=== PATIENT | female | born 1955 ===

== ENCOUNTER 2021-07-23 06:01 | Inpatient (IN) ==
[~2021-07-23 06:01] MED LIST: Buffered Lidocaine 1% SYRIN 1 ml INTRADERM ONE; Dexamethasone IV 4 MG/ML VIAL 1 ml VIAL IV SLOW PU ONE; Famotidine IV 10 MG/ML 2 ml VIAL (20 mg) IV ONE; Lactated Ringers 1000 ml BAG 1,000 ML IV SCH
[2021-07-23] MEDS ORDERED: Heparin 5000 UNITS/ML 1 mL VIAL ONE (06:23)
[2021-07-23] MEDS ORDERED: ceFAZolin 2 GM PREMIX 2 GM/50 ML BAG ONE (06:24)
[2021-07-23] MEDS ORDERED: Dexamethasone IV 4 MG/ML VIAL 1 ml VIAL ONE (06:24)
[2021-07-23] MEDS ORDERED: Famotidine IV 10 MG/ML 2 ml VIAL (20 mg) ONE (06:24)
[2021-07-23] MEDS ORDERED: Buffered Lidocaine 1% SYRIN 1 ml INTRADERM ONE (07:02)
[2021-07-23] MEDS ORDERED: Lidocaine 2% PF 5 ML VIAL ONE (07:08)
[2021-07-23] MEDS ORDERED: ISOSULFAN BLUE 1% 5 ML VIAL 10 MG/ML SUBCUT ONE (07:10)
[2021-07-23] MEDS ORDERED: Bupivacaine 0.25% SDV PF 10 ML VIAL INJ ONE (07:10)
[2021-07-23] MEDS ORDERED: Prochlorperazine 5 mg/ml 2 ml VIAL (10 mg) IV PRN (07:26)
[2021-07-23] MEDS ORDERED: fentaNYL 100 mcg/2 ml 50 MCG/ML VIAL IV PRN (07:26)
[2021-07-23] MEDS ORDERED: Naloxone 0.4 mg VIAL 0.4 mg/ml 1 ml VIAL IV PRN (07:26)
[2021-07-23] MEDS ORDERED: Morphine 2 MG/ML SYRINGE IV PRN (10:32)
[2021-07-23] MEDS ORDERED: HYDROcodone/ACETAMIN 5/325 mg TAB PO PRN (10:41)
[2021-07-23] MEDS ORDERED: Scopolamine 1 mg/72hr PATCH TRANSDERM SCH (11:00)
[2021-07-23] MEDS: Heparin 5000 UNITS/ML 1 mL VIAL SUBCUT SCH ×2 (13:22→21:34)
[2021-07-23] MEDS: ceFAZolin 2 GM PREMIX 2 GM/50 ML BAG IVPB SCH ×2 (15:33→23:21)
[2021-07-24] MEDS: Heparin 5000 UNITS/ML 1 mL VIAL SUBCUT SCH (06:22)
[2021-07-24] MEDS: ceFAZolin 2 GM PREMIX 2 GM/50 ML BAG IVPB SCH (07:30)
[2021-07-24 07:51] VITALS: BP 112/69
== END 2021-07-24 11:20 | disposition home or self-care (01) | DRG 580 ==
LOC: AA 06:01 → SSU 12:09
PROVIDERS: ADMIT Student in an Organized Health Care Education/Training Program; ATTEND Surgery Surgical Critical Care